=== PATIENT | female | born 1980 | race Caucasian/White ===

== ENCOUNTER 2017-12-17 18:24 | Emergency (ER) | payer BC ==
[~2017-12-17] VITALS: Ht 152.4 cm; Wt 112.0 kg
[2017-12-17 21:12] VITALS: BP 144/92
== END 2017-12-17 21:12 | disposition home or self-care (01) ==
LOC: ED 18:24
DX: S63.280A Dislocation of proximal interphalangeal joint of right index finger, initial encounter (principal); W22.8XXA Striking against or struck by other objects, initial encounter; Y93.89 Activity, other specified; Y92.89 Other specified places as the place of occurrence of the external cause; Y99.8 Other external cause status
CPT/HCPCS: A4570; Q0092